=== PATIENT | female | born 1945 | race African-American/Black ===

== ENCOUNTER → 2016-11-15 | Outpatient (CLI) | payer MEDICARE, OTHER ==
--- NOTE | ~2016-11-15 | US85 ---
[facility] A Service of [facility] & [facility] RADIOLOGY TEXT RESULTS PATIENT: EMMANUEL ORDOÑEZ LOCATION: CNIV : 49 UNIT #: [id number] AGE: [address]: Rickie Casey MD SEX: F ORDER DR: [id number] [facility] [address] [place], [place] [address] [id number] O MR#: [id number] Acc #: [id number] NAME: EMMANUEL ORDOÑEZ : 1945 SEX: F STUDY DATE/TIME: 11/15/2016 16:18 UNIT: CN[facility] ROOM: STUDY DESCRIPTION: [facility] [place] Ltd St[place] Attending Physician: Rickie Casey M.D. Referring Physician: Rickie Casey M.D. Ordering Physician: Rickie Casey M.D. Primary Care Physician: Rickie Casey M.D. MEDICAL IMAGING REPORT This report is preliminary unless electronic signature is present EXAM Left lower extremity venous duplex HISTORY Left lower extremity cramping, pain in the calf for 3 weeks. FINDINGS Venous duplex imaging of the left lower extremity reveals patent femoral, popliteal, tibial, peroneal veins with normal venous filling in all of the visualized veins. No evidence of DVT is seen. IMPRESSION No evidence of DVT is seen in the left lower extremity. Dictated by... Aric Heaton M.D. THIS IS AN ELECTRONICALLY VERIFIED REPORT Airc Heaton M.D. at 11/16/2016 3:31 PM Wilfred TD: 11/16/2016 12:47 JOB #: [id number] MEDICAL IMAGING REPORT Page 1 of 1 COPY
== END | disposition home or self-care (01) ==
LOC: CNIV 15:51
DX: M79.605 Pain in left leg (principal)
CPT/HCPCS: 93971